=== PATIENT | female | born 1995 | race Caucasian/White ===

== ENCOUNTER 2017-12-26 03:04 | Emergency (ER) | payer OTHER ==
[~2017-12-26] VITALS: Ht 165.1 cm; Wt 82.8 kg
[2017-12-26 03:44] LABS: BASOPHILS # (AUTO) 0.05 x10^3/uL (0-0.1); BASOPHILS % (AUTO) 1 % (0-1); EOSINOPHILS # (AUTO) 0.08 x10^3/uL (0-0.4); EOSINOPHILS % (AUTO) 1 % (1-7); LYMPHOCYTES # (AUTO) 3.15 x10^3/uL (1-3.4); LYMPHOCYTES % (AUTO) 41 % (22-44); MD NO; MEAN CORPUSCULAR HEMOGLOBIN 29.6 pg (27.0-34.8); MEAN CORPUSCULAR HGB CONC 33.3 g/dL (32.4-35.8); MEAN PLATELET VOLUME 10.4 fL (7.4-10.4); MONOCYTES # (AUTO) 0.24 x10^3/uL (0.2-0.8); MONOCYTES % (AUTO) 3 % (2-9); NEUTROPHILS # (AUTO) 4.14 x10^3/uL (1.8-6.8); NEUTROPHILS % (AUTO) 54 % (42-75); PLATELET COUNT 231 x10^3/uL (130-400); RED BLOOD COUNT 4.66 x10^6/uL (3.82-5.3); RED CELL DISTRIBUTION WIDTH 13.4 % (9.6-15.2)
[2017-12-26 03:55] LABS: ALBUMIN 3.9 g/dL (3.4-5.0); ANION GAP 10 mmol/L (5-15); CALCIUM 8.9 mg/dL (8.5-10.1); CHLORIDE 110 mmol/L (98-107)
[2017-12-26 03:59] LABS: TROPONIN I < 0.015 ng/mL (0.000-0.045)
[2017-12-26 05:50] VITALS: BP 109/68
== END 2017-12-26 05:59 | disposition home or self-care (01) ==
LOC: ED 05:41
DX: R07.89 Other chest pain (principal)
CPT/HCPCS: 36415; 71045; 80048; 82040; 84484; 85025; 85379; 93005; 99285

== ENCOUNTER 2019-11-26 02:43 | Emergency (ER) | payer OTHER ==
[~2019-11-26] VITALS: Ht 165.1 cm; Wt 81.6 kg
[2019-11-26] MEDS ORDERED: ADENOSINE 6 MG/2 ML ONE (03:01)
[2019-11-26] MEDS ORDERED: PROPOFOL 10 MG/ML, 20ML ONE (03:17)
--- NOTE | 2019-11-26 03:39 | NUR ---
LATE ENTRY: THIS IS A 24 YO FEMALE COMING IN FOR PALPITAITONS, IN TRIAGE, PATIENT'S HR WAS IN THE 240'S, BROUGHT STRAIGHT BACK TO ROOM. PATIENT HAS HX OF SVT IN PAST, LAST EPISODE IN 2017, NO INTERVENTIONS NEEDED AT THAT TIME. CURRENTLY, PATIENT STATES "IT USUALLY GOES AWAY IN A FEW MINUTES, THIS TIME IT DIDN'T". PALPITATIONS STARTED AROUND 1130 LAST NIGHT WHEN GETTING READY FOR BED. ALL MONITORING IN PLACE, SVT ON MONITOR. ERP TO BEDSIDE TO EVALUATE. PIV PLACED, VALSALVA MANEUVERS ATTEMPTED WITHOUT SUCCESS. ERP IN ROOM, PATIENT CONNECTED TO CRASH CART PADS. IVF STARTED PER VERBAL ORDER 0309: 6MG ADENOSINE PUSHED, 2-3 SECONDS IN NSR, BACK TO SVT. UNSUCCESSFUL. 0310: 12 MG ADENOSINE PUSHED, APPROX 5 SECONDS IN NSR, PATIENT BACK TO SVT 0312: 12 MG ADENOSIDE PUSHED, APPROX 5 SECONDS IN NSR, PATIENT BACK TO SVT ERP DISCUSSED NEXT STEPS, GIVEN OPTION OF CARDIOVERSION, PATIENT CONSENTED TO PROCEDURE. PATIENT AND ROOM SET UP FOR CARDIOVERSION, SUCTION READY, AMBU BAG READY 0321: 80MG PROPOFOL ADMINISTERED BY ERP 0323: PATIENT SYNCHRONIZED CARDIOVERTED AT 100 JOULES, WITH SUCCESS. PATIENT IN SINUS TACHYCARDIA AT 117BPM.
--- NOTE | 2019-11-26 03:48 | NUR ---
0327: PATIENT STARTING TO AROUSE TO VERBAL STIMULI, VSS, SPO2 AT 100% ON 5L NC.
--- NOTE | 2019-11-26 03:49 | NUR ---
0333: PATIENT AWAKE AND ALERT, DENIES ANY PAIN AT THIS TIME, VSS, HR AT 108, O2 TITRATED DOWN TO 2.5L NC AT 98%
--- NOTE | 2019-11-26 03:59 | NUR ---
VSS AT THIS TIME, SPO2 AT 99% ON RA, NAD, ALL MONITORING IN PLACE
[2019-11-26 04:21] LABS: ALBUMIN 3.7 g/dL (3.4-5.0); ANION GAP 8 mmol/L (5-15); BASOPHILS # (AUTO) 0.04 x10^3/uL (0-0.1); BASOPHILS % (AUTO) 1 % (0-1); CALCIUM 8.2 mg/dL (8.5-10.1); CHLORIDE 112 mmol/L (98-107); EOSINOPHILS # (AUTO) 0.06 x10^3/uL (0-0.4); EOSINOPHILS % (AUTO) 1 % (1-7); LYMPHOCYTES # (AUTO) 2.34 x10^3/uL (1-3.4); LYMPHOCYTES % (AUTO) 26 % (22-44); MD NO; MEAN CORPUSCULAR HEMOGLOBIN 31.8 pg (27.0-34.8); MEAN CORPUSCULAR HGB CONC 33.7 g/dL (32.4-35.8); MEAN CORPUSCULAR VOLUME 94.3 fL (80-100); MEAN PLATELET VOLUME 10.6 fL (7.4-10.4); MONOCYTES # (AUTO) 0.44 x10^3/uL (0.2-0.8); MONOCYTES % (AUTO) 5 % (2-9); NEUTROPHILS # (AUTO) 6.01 x10^3/uL (1.8-6.8); NEUTROPHILS % (AUTO) 68 % (42-75); PLATELET COUNT 224 x10^3/uL (130-400); RED BLOOD COUNT 4.42 x10^6/uL (3.82-5.3); RED CELL DISTRIBUTION WIDTH 13.5 % (9.6-15.2)
--- NOTE | 2019-11-26 04:23 | NUR ---
[place], RESPIRATIONS EVEN AND UNLABORED, VSS, NAD, DENIES NEEDS AT THIS TIME
[2019-11-26] MEDS ORDERED: ADENOSINE 6 MG/2 ML IVPush ONE ×3 (04:30)
[2019-11-26] MEDS ORDERED: PROPOFOL 10 MG/ML, 20ML IVPush ONE (04:30)
[2019-11-26 04:33] LABS: CREATININE 0.69 mg/dL (0.55-1.02)
--- NOTE | 2019-11-26 05:25 | NUR ---
PATIENT UP IN [place], RESPIRATIONS EVEN AND UNLABORED, VSS, NAD, DENIES NEEDS AT THIS TIME
[2019-11-26 05:26] VITALS: BP 109/66
--- NOTE | 2019-11-26 06:15 | NUR ---
Patient/Caregiver given discharge instructions and they have confirmed that they understand the instructions. Patient ambulatory with steady gait.
== END 2019-11-26 06:23 | disposition home or self-care (01) ==
LOC: ED 05:14
DX: R00.2 Palpitations (principal); I47.1 Supraventricular tachycardia
CPT/HCPCS: 36415; 71045; 80048; 82040; 83735; 84443; 85025; 92960; 93005; 99285; J0153

== ENCOUNTER 2020-05-11 02:07 | Emergency (ER) | payer OTHER ==
[~2020-05-11] VITALS: Ht 165.1 cm; Wt 79.7 kg
[2020-05-11] MEDS ORDERED: ADENOSINE 6 MG/2 ML ONE (02:22)
[2020-05-11] MEDS ORDERED: PROPOFOL 10 MG/ML, 20ML ONE (02:29)
[2020-05-11] MEDS ORDERED: SODIUM CHLORIDE 0.9% 1,000ML IVBOLUS ONE (02:30)
[2020-05-11] MEDS ORDERED: ADENOSINE 6 MG/2 ML IVPush ONE ×2 (02:30)
[2020-05-11] MEDS ORDERED: SODIUM CHLORIDE FLUSH 10ML SYR IVF ONE (02:30)
[2020-05-11 02:31] LABS: BASOPHILS # (AUTO) 0.09 x10^3/uL (0-0.1); BASOPHILS % (AUTO) 1 % (0-1); EOSINOPHILS # (AUTO) 0.18 x10^3/uL (0-0.4); EOSINOPHILS % (AUTO) 2 % (1-7); LYMPHOCYTES # (AUTO) 3.89 x10^3/uL (1-3.4); LYMPHOCYTES % (AUTO) 50 % (22-44); MD NO; MEAN CORPUSCULAR HEMOGLOBIN 31.7 pg (27.0-34.8); MEAN CORPUSCULAR HGB CONC 33.5 g/dL (32.4-35.8); MEAN CORPUSCULAR VOLUME 94.7 fL (80-100); MEAN PLATELET VOLUME 9.7 fL (7.4-10.4); MONOCYTES # (AUTO) 0.29 x10^3/uL (0.2-0.8); MONOCYTES % (AUTO) 4 % (2-9); NEUTROPHILS # (AUTO) 3.41 x10^3/uL (1.8-6.8); NEUTROPHILS % (AUTO) 43 % (42-75); PLATELET COUNT 246 x10^3/uL (130-400); RED BLOOD COUNT 4.41 x10^6/uL (3.82-5.3); RED CELL DISTRIBUTION WIDTH 13.2 % (9.6-15.2)
[2020-05-11 02:43] LABS: ALBUMIN 4.1 g/dL (3.4-5.0); ANION GAP 7 mmol/L (5-15); CALCIUM 9.3 mg/dL (8.5-10.1); CHLORIDE 111 mmol/L (98-107); CREATININE 0.67 mg/dL (0.55-1.02); T4 (THYROXINE) 11.1 mcg/dL (4.8-13.9)
--- NOTE | 2020-05-11 02:52 | NUR ---
PROXY CHARTING FOR 0230. PATIENT BROUGHT STRAIGHT BACK TO ROOM, WAS PLAXCED ON ALL MONITORS AND ZOLL. CARDIOVERSON ATTEMPTED BY DR. MERINO WITH ADENOSINE. ATTEMPT UNSUCCESSFUL. PATIENT SYNCRONIZED CARDIVERTED AT [address] MERINO. SEE PROCEDURAL SEDATION PAPERWORK.,
[2020-05-11] MEDS ORDERED: POTASSIUM CHLORIDE 20 MEQ TAB.ER.PRT ONE (03:00)
[2020-05-11] MEDS ORDERED: POTASSIUM CHLORIDE 20 MEQ TAB.ER.PRT PO ONE (03:00)
[2020-05-11 04:33] VITALS: BP 116/81
== END 2020-05-11 04:48 | disposition home or self-care (01) ==
LOC: ED 02:22
DX: I47.1 Supraventricular tachycardia (principal); R07.89 Other chest pain; R00.2 Palpitations
CPT/HCPCS: 36415; 80048; 82040; 83735; 84436; 84443; 84703; 85025; 92960; 93005; 99291; J0153; J7030

== ENCOUNTER 2020-08-23 17:37 | Emergency (ER) | payer OTHER ==
[~2020-08-23] VITALS: Ht 165.1 cm; Wt 78.4 kg
[2020-08-23] MEDS ORDERED: ADENOSINE 6 MG/2 ML ONE (17:49)
[2020-08-23] MEDS ORDERED: METOPROLOL 1 MG/ML, 5ML IVPush ONE (18:00)
[2020-08-23] MEDS ORDERED: ADENOSINE 6 MG/2 ML IVPush ONE (18:00)
[2020-08-23] MEDS ORDERED: SODIUM CHLORIDE FLUSH 10ML SYR IVF ONE (18:00)
[2020-08-23] MEDS ORDERED: METOPROLOL 1 MG/ML, 5ML ONE (18:02)
--- NOTE | 2020-08-23 18:08 | NUR ---
1759 - ED MD NAVA AT BEDSIDE FOR CARDIOVERSION USING ADENOSINE ORDERED ON EMAR. PT TOLERATED WELL. PT'S CARDIAC RHYTHM IMPROVED TO SINUS TACHYCARDIA. PT DENIES ANY NEEDS AT THIS TIME. CONTINUOUS SPO2 AND CARDIAC MONITORING IN PLACE. VSS. STABLE.
[2020-08-23 18:10] VITALS: BP 115/77
[2020-08-23 18:28] LABS: BASOPHILS % (AUTO) 1 % (0-1); EOSINOPHILS % (AUTO) 1 % (1-7); LYMPHOCYTES % (AUTO) 32 % (22-44); MEAN CORPUSCULAR HEMOGLOBIN 31.5 pg (27.0-34.8); MEAN CORPUSCULAR HGB CONC 33.7 g/dL (32.4-35.8); MEAN PLATELET VOLUME 9.7 fL (7.4-10.4); MONOCYTES % (AUTO) 7 % (2-9); NEUTROPHILS % (AUTO) 59 % (42-75); PLATELET COUNT 199 x10^3/uL (130-400); RED BLOOD COUNT 4.12 x10^6/uL (3.82-5.3); RED CELL DISTRIBUTION WIDTH 13.3 % (9.6-15.2)
[2020-08-23 18:32] LABS: MD NO
[2020-08-23 18:35] LABS: ALBUMIN 3.5 g/dL (3.4-5.0); ANION GAP 7 mmol/L (5-15); CALCIUM 7.7 mg/dL (8.5-10.1); CHLORIDE 113 mmol/L (98-107)
[2020-08-23 18:47] LABS: CREATININE 0.68 mg/dL (0.55-1.02)
--- NOTE | 2020-08-23 18:49 | NUR ---
REPORT TO KRIS THOMPSON.
== END 2020-08-23 19:11 | disposition home or self-care (01) ==
LOC: ED 18:17
DX: I47.1 Supraventricular tachycardia (principal); R00.2 Palpitations
CPT/HCPCS: 36415; 80048; 82040; 83735; 84443; 85025; 92960; 93005; 96374; 96375; 99291; J0153; 99284

== ENCOUNTER 2020-08-30 01:49 | Emergency (ER) | payer OTHER ==
[~2020-08-30] VITALS: Ht 165.1 cm; Wt 79.0 kg
[2020-08-30] MEDS ORDERED: ADENOSINE 6 MG/2 ML IVPush ONE ×2 (02:00)
[2020-08-30] MEDS ORDERED: SODIUM CHLORIDE FLUSH 10ML SYR IVF ONE (02:00)
[2020-08-30] MEDS ORDERED: SODIUM CHLORIDE 0.9% 1,000ML IVBOLUS ONE (02:00)
[2020-08-30] MEDS ORDERED: PROPOFOL 10 MG/ML, 20ML IVPush ONE (02:00)
[2020-08-30] MEDS ORDERED: ADENOSINE 6 MG/2 ML ONE (02:05)
[2020-08-30 02:15] LABS: BASOPHILS % (AUTO) 1 % (0-1); EOSINOPHILS % (AUTO) 1 % (1-7); LYMPHOCYTES % (AUTO) 47 % (22-44); MEAN CORPUSCULAR HEMOGLOBIN 32.5 pg (27.0-34.8); MEAN CORPUSCULAR HGB CONC 34.6 g/dL (32.4-35.8); MEAN PLATELET VOLUME 9.4 fL (7.4-10.4); MONOCYTES % (AUTO) 6 % (2-9); NEUTROPHILS % (AUTO) 45 % (42-75); PLATELET COUNT 250 x10^3/uL (130-400); RED BLOOD COUNT 4.37 x10^6/uL (3.82-5.3)
[2020-08-30 02:16] LABS: MD NO
[2020-08-30] MEDS ORDERED: METOPROLOL 1 MG/ML, 5ML ONE (02:17)
--- NOTE | 2020-08-30 02:23 | NUR ---
PATIENT IN ROOM FROM TRIAGE. HEART RATE 240 WITHOUT CHANGE. PATIENT HAS HISTORY OF SVT REQUIRING CARDIOVERSION/ADENSOSINE. PATIENT PLACED ON DFIB PADS, BOW REPAIRER CUSTOM, BP MONITORING, NC AT 2L. PATIENT VERBALIZED CONSENT FOR PROCEDURES. TIME OUT AT 021, 12MG ADENSOSINE PUSHED FOLLOWED BY RAPID FLUSH. PATIENT'S CARDIAC RHYTHM CHANGED 109 ST. IMPROVED TO 86 NSR, EKG COMPLETED. PATIENT TOLERATED PROCEDURE WELL. PROCEDURE COMPLETED AT 212. PATIENT'S VITAL SIGNS HAVE IMPROVED. METOPROLOL WILL BE ADMINISTERED PER NOV FOR RATE CONTROL.
[2020-08-30 02:28] LABS: ALANINE AMINOTRANSFERASE 24 U/L (12-78); ALBUMIN 4.2 g/dL (3.4-5.0); ANION GAP 5 mmol/L (5-15); CHLORIDE 109 mmol/L (98-107); CREATININE 0.78 mg/dL (0.55-1.02)
[2020-08-30] MEDS ORDERED: METOPROLOL 1 MG/ML, 5ML IVPush ONE (02:30)
[2020-08-30 02:38] LABS: ALKALINE PHOSPHATASE 82 U/L (45-117); BILIRUBIN,TOTAL 0.5 mg/dL (0.2-1.0); T4 (THYROXINE) 11.4 mcg/dL (4.8-13.9); TOTAL PROTEIN 7.2 g/dL (6.4-8.2)
--- NOTE | 2020-08-30 03:19 | NUR ---
PATIENT CLEARED FOR DISCHARGE NON OTED ACUTE DISTRESS. AMBULATORY TO DISCHARGE WITHOUT COMPLICATIONS WITH BELONGINGS. PATIENT TOLERATED INTERVENTIONS WELL. HEART RATE MAINTAINED AFTER MEDICATION. PATIENT VERBALIZED UNDERSTANDING OF SELF CARE, PRESCRIPTIONS, AND FOLLOW UP CARE.
[2020-08-30 03:20] VITALS: BP 105/72
== END 2020-08-30 03:22 | disposition home or self-care (01) ==
LOC: ED 02:00
DX: I47.1 Supraventricular tachycardia (principal); R00.2 Palpitations; R00.0 Tachycardia, unspecified
CPT/HCPCS: 36415; 80053; 83735; 84436; 84443; 84703; 85025; 93005; 96361; 96374; 99284; J0153; J7030; 92960; 96375

== ENCOUNTER 2020-10-17 05:52 | Day surgery (SDC) | payer OTHER ==
[~2020-10-17] VITALS: Ht 165.1 cm; Wt 75.0 kg
[2020-10-17 06:11] VITALS: BP 113/78
[2020-10-17] MEDS ORDERED: NO MEDICATIONS (06:11)
[2020-10-17] MEDS ORDERED: SODIUM CHLORIDE 0.9% 1,000 ML IV SCH (06:30)
[2020-10-17 06:48] LABS: BASOPHILS % (AUTO) 1 % (0-1); EOSINOPHILS % (AUTO) 2 % (1-7); LYMPHOCYTES % (AUTO) 33 % (22-44); MEAN CORPUSCULAR HEMOGLOBIN 31.9 pg (27.0-34.8); MEAN CORPUSCULAR HGB CONC 34.2 g/dL (32.4-35.8); MEAN PLATELET VOLUME 9.5 fL (7.4-10.4); MONOCYTES % (AUTO) 7 % (2-9); NEUTROPHILS % (AUTO) 57 % (42-75); PLATELET COUNT 200 x10^3/uL (130-400); RED BLOOD COUNT 4.18 x10^6/uL (3.82-5.3); RED CELL DISTRIBUTION WIDTH 13.4 % (9.6-15.2)
[2020-10-17 06:53] LABS: MD NO
[2020-10-17 07:00] LABS: ANION GAP 6 mmol/L (5-15); CALCIUM 8.9 mg/dL (8.5-10.1); CHLORIDE 111 mmol/L (98-107); CREATININE 0.77 mg/dL (0.55-1.02)
[2020-10-17 07:45] LABS: INTERNATIONAL NORMALIZED RATIO 1.01 (0.93-1.1)
[2020-10-17 07:46] LABS: PROTHROMBIN TIME 10.7 Seconds (9.6-11.5)
[2020-10-17] MEDS ORDERED: FENTANYL PF 100 MCG/2ML ONE (08:05)
[2020-10-17] MEDS ORDERED: MIDAZOLAM 1 MG/ML, 5ML ONE (08:05)
[2020-10-17] MEDS ORDERED: LIDOCAINE 2%, 20ML ONE (08:06)
[2020-10-17] MEDS ORDERED: ISOPROTERENOL 0.2MG/ML, 5ML ONE (08:06)
== END 2020-10-17 15:01 | disposition home or self-care (01) ==
LOC: CACL 05:52
PROVIDERS: ATTEND Internal Medicine Clinical Cardiac Electrophysiology
DX: I47.1 Supraventricular tachycardia (principal); Z79.899 Other long term (current) drug therapy
CPT/HCPCS: 36415; 80048; 84703; 85025; 85610; 93613; 93621; 93653; 99156; 99157; C1730; C1766; C1894; C2630; J2250; J3010